=== PATIENT | female | born 1940 | race Caucasian/White ===

== ENCOUNTER → 2017-11-28 | Outpatient (CLI) | payer MEDICARE ==
[~2017-11-28] MED LIST: PRED1TAB PO; ZOLP5TAB2 PO
== END | disposition home or self-care (01) ==
LOC: RAH 09:14
PROVIDERS: ATTEND Nurse Practitioner Adult Health
DX: M79.89 Other specified soft tissue disorders (principal)
CPT/HCPCS: 93971

== ENCOUNTER → 2018-04-09 | Outpatient (CLI) | payer MEDICARE | END | disposition home or self-care (01) | LOC: RAH 10:34 | PROVIDERS: ATTEND Nurse Practitioner Adult Health | DX: Z12.31 Encounter for screening mammogram for malignant neoplasm of breast (principal) | CPT/HCPCS: 77067 ==

== ENCOUNTER 2018-12-11 21:31 | Observation (INO) | payer MEDICARE ==
[2018-12-11 22:15] LABS: EOSINOPHILS % (AUTO) 2.5 % (0.0-8.0); HEMATOCRIT 39.5 % (36-48); MEAN CORPUSCULAR HEMOGLOBIN 29.4 pg (27.0-33.0); MEAN CORPUSCULAR HGB CONC 34.3 g/dL (32.0-36.0); MEAN CORPUSCULAR VOLUME 85.8 fL (79-99); MONOCYTES % (AUTO) 9.1 % (3.0-13.0); NEUTROPHILS % (AUTO) 54.4 % (40.0-77.0); PLATELET COUNT (AUTO) 179 K/uL (130-400); RED CELL DISTRIBUTION WIDTH 13.3 % (11.0-15.5); WHITE BLOOD COUNT (AUTO) 7.4 K/uL (4.8-10.8)
[2018-12-11 22:27] LABS: INR 1.27 (0.85-1.15); PARTIAL THROMBOPLASTIN TIME 34.1 SEC (26.3-35.5); PROTHROMBIN TIME 13.2 SEC (9.6-11.6)
[2018-12-11 22:28] LABS: CREATININE 0.8 mg/dL (0.5-1.5); POTASSIUM 4.1 mmol/L (3.5-5.1)
[2018-12-11 22:33] LABS: ALBUMIN 3.4 g/dL (3.5-5.0); BILIRUBIN,TOTAL 0.2 mg/dL (0.2-1.0); TOTAL PROTEIN, SERUM 7.4 g/dL (6.0-8.3)
[2018-12-12] MEDS ORDERED: LACTULOSE 20 GM/30 ML UDCUP PO PRN (01:00)
[2018-12-12] MEDS ORDERED: ACETAMINOPHEN 325 MG TAB PO PRN ×2 (01:00)
[2018-12-12] MEDS ORDERED: MORPHINE SULFATE 2 MG/ML 1ML SYG IV PRN (01:00)
[2018-12-12] MEDS ORDERED: ONDANSETRON HCL 4 MG/2 ML VIAL IV PRN (01:00)
[2018-12-12 03:43] VITALS: BP 151/98
--- NOTE | 2018-12-12 04:30 | NUR ---
PT HAD A BM BRIGHT RED BLOOD NOTICED MINIMAL AMOUNT , BUT NOTORIOUS PT DENIES SOB OR CHEST PAIN
[2018-12-12 06:07] LABS: HEMATOCRIT 38.4 % (36-48)
[2018-12-12 08:20] VITALS: BP 128/66
[2018-12-12] MEDS: FAMOTIDINE/PF 20 MG/2 ML VIAL IV SCH ×2 (10:14→21:59)
[2018-12-12] MEDS: SODIUM CHLORIDE 0.9% 1000ML 1,000 ML IV SCH ×2 (10:15→10:52)
[2018-12-12 10:32] LABS: HEMATOCRIT 39.9 % (36-48)
--- NOTE | 2018-12-12 10:33 | NUR ---
DR. FOX PAGESanjana:STATES SHES NOT ONCALL DR. CHATO SAWYER
[2018-12-12 11:59] VITALS: BP 132/79
--- NOTE | 2018-12-12 12:05 | NUR ---
PT STATES BLEEDING IS LESS NOTICED IN STOOLS.
--- NOTE | 2018-12-12 15:54 | NUR ---
DR. REIS'S OFFICE KRISTINE RETURNED CALL STATES NO NEED FOR SCOPE AT THIS TIME, OTHER ORDERS ENTERED.
[2018-12-12 16:03] VITALS: BP 145/75
[2018-12-12 16:09] LABS: HEMATOCRIT 39.4 % (36-48)
--- NOTE | 2018-12-12 18:24 | NUR ---
cm note met with patient and states resides [facility] with spouse, is a [place], independent with adls and does use walker for long distances only. dcplan is back to home. pt drives. dc plan is back to home with spouse, no dc needs. Addendum: 12/12/18 at 1826 by JHON MARTINES CM Amended: Links added.
[2018-12-12 19:00] VITALS: BP 133/67
[2018-12-12] MEDS ORDERED: HYDROCORTISONE 25 MG SUPPOSITORY PR SCH (21:00)
[2018-12-12] MEDS: PSYLLIUM SEED 1 EACH PACKET PO SCH (22:00)
[2018-12-12 23:00] VITALS: BP 121/65
[2018-12-13 03:00] VITALS: BP 125/73
[2018-12-13 05:31] LABS: BASOPHILS % (AUTO) 0.9 % (0.0-5.0); EOSINOPHILS % (AUTO) 3.2 % (0.0-8.0); HEMATOCRIT 37.7 % (36-48); LYMPHOCYTES % (AUTO) 32.5 % (21.0-51.0); MEAN CORPUSCULAR HEMOGLOBIN 28.7 pg (27.0-33.0); MEAN CORPUSCULAR HGB CONC 33.7 g/dL (32.0-36.0); MEAN CORPUSCULAR VOLUME 85.2 fL (79-99); MONOCYTES % (AUTO) 9.3 % (3.0-13.0); NEUTROPHILS % (AUTO) 54.1 % (40.0-77.0); PLATELET COUNT (AUTO) 177 K/uL (130-400); RED BLOOD CELL COUNT(AUTO) 4.42 MIL/uL (4.00-5.50); RED CELL DISTRIBUTION WIDTH 13.2 % (11.0-15.5); WHITE BLOOD COUNT (AUTO) 5.5 K/uL (4.8-10.8)
[2018-12-13 05:41] LABS: CREATININE 0.7 mg/dL (0.5-1.5); POTASSIUM 3.8 mmol/L (3.5-5.1)
[2018-12-13 08:00] VITALS: BP 131/61
[2018-12-13] MEDS ORDERED: RIVAROXABAN 20 MG TABLET ONE (09:42)
[2018-12-13] MEDS: PSYLLIUM SEED 1 EACH PACKET PO SCH (09:49)
[2018-12-13] MEDS: FAMOTIDINE/PF 20 MG/2 ML VIAL IV SCH (09:49)
[2018-12-13 11:22] VITALS: BP 118/70
[2018-12-13] MEDS ORDERED: Psyllium Seed PO (11:42)
[2018-12-13] MEDS ORDERED: HYDR25SU11 PR (11:42)
--- NOTE | 2018-12-13 12:55 | NUR ---
PER DR. REIS RESUMSamira XARELTO TODAY. WAS CONTINUED AND NO BLEEDING WAS NOTED.
--- NOTE | 2018-12-13 12:55 | NUR ---
PT D/C HOME USING TEACH BACK TECHNIQUE RE; HOME MEDS, S/S TO WATCH FOR AND WHEN TO CALL MD OR 911. PLEASE FOLLOW UP WITH DR Jorge SALAZAR [phone] IN 1-2 [address] UP WITH DR Tyler REIS [phone] IN 1-WKS. PLEASE CALL OFFICE TO MAKE APPT AFTER DISCHARGED FROM HOSPITAL CALL 911 IF SHORTNESS OF BREATH OR CHEST PAIN OCCURS AND DOES NOT RESOLVE WITH REST. CALL YOUR GASTROINTESTINAL DOCTOR IF YOU NOTICE BLOOD IN YOUR STOOLS. Discharge home, Activity as tolerated, Follow-up with PRIMARY DOCTOR in 3 days,Referring MD: Mónica Pérez, Follow-up with GASTROINTESTINAL in 1-2 weeks/as indicated, Continue home medications, Continue medications as prescribed by GASTROINTESTINAL, Anusol rectal suppositories hs, stool softener daily, FOLLOW UP WITH HYDRO ELECTRIC STATION OPERATOR IN 1 WEEK TO FOLLOW UP WITH PULMONARY EMBOLISM AND RIGHT LOWER EXTREMITY EMBOLISM. IV D/C INTACT, NO BLEEDING, PT DENIES BM WITH BLOOD. AAOX3, NO DISTRESS, DENIES ANY QUESTIONS.
[2018-12-14] MEDS ORDERED: RIVAROXABAN 20 MG TABLET PO SCH (09:00)
== END 2018-12-13 13:15 | disposition home or self-care (01) ==
LOC: EDH 21:31 → EDHIP 12-12 00:52 → 3DH 12-12 03:08
PROVIDERS: ADMIT Hospitalist; ATTEND Hospitalist
DX: K92.1 Melena (principal); K57.90 Diverticulosis of intestine, part unspecified, without perforation or abscess without bleeding; E78.5 Hyperlipidemia, unspecified; Z86.711 Personal history of pulmonary embolism; Z86.718 Personal history of other venous thrombosis and embolism; Z86.73 Personal history of transient ischemic attack (TIA), and cerebral infarction without residual deficits; Z90.710 Acquired absence of both cervix and uterus; Z79.01 Long term (current) use of anticoagulants; Z79.899 Other long term (current) drug therapy
CPT/HCPCS: 36415 ×3; 74176; 80048; 80053; 82270; 85014 ×3; 85018 ×3; 85025 ×2; 85610; 85730; 86850; 86900; 86901; 96374; 96376 ×2; 99284; G0378 ×36; J3490 ×3

== ENCOUNTER → 2020-05-19 | Outpatient (CLI) | payer MEDICARE ==
[~2020-05-19] MED LIST changes: +HYDR25SU11 PR; -PRED1TAB PO; +Psyllium Seed PO; -ZOLP5TAB2 PO
== END | disposition home or self-care (01) ==
LOC: RAH 08:15
PROVIDERS: ATTEND Nurse Practitioner Adult Health
DX: Z12.31 Encounter for screening mammogram for malignant neoplasm of breast (principal)
CPT/HCPCS: 77067

== ENCOUNTER → 2020-05-20 | Outpatient (CLI) | payer MEDICARE | END | disposition home or self-care (01) | LOC: CANPRECLI → RAH 09:25 | PROVIDERS: ATTEND Internal Medicine Gastroenterology | DX: R13.12 Dysphagia, oropharyngeal phase (principal); R63.3 Feeding difficulties; R05 Cough | CPT/HCPCS: 71046 ==

== ENCOUNTER → 2023-02-13 | Outpatient (CLI) | payer MEDICARE | END | disposition home or self-care (01) | LOC: RAH 09:56 | PROVIDERS: ATTEND Nurse Practitioner Adult Health | DX: M47.815 Spondylosis without myelopathy or radiculopathy, thoracolumbar region (principal); R05.9 Cough, unspecified; I70.0 Atherosclerosis of aorta | CPT/HCPCS: 71046 ==

== ENCOUNTER → 2023-12-11 | Outpatient (CLI) | payer MEDICARE ==
[~2023-12-11] MED LIST changes: +GADOTERATE MEGLUMINE 10 MMOL/20 ML VIAL IV ONE
== END | disposition home or self-care (01) ==
LOC: RAH 14:36
PROVIDERS: ATTEND Nurse Practitioner Adult Health
DX: R27.0 Ataxia, unspecified (principal)
CPT/HCPCS: 70553; A9575

== ENCOUNTER 2024-03-29 09:48 | Emergency (ER) | payer MEDICARE ==
[~2024-03-29] VITALS: Ht 157.5 cm; Wt 70.3 kg
[~2024-03-29 09:48] MED LIST changes: -GADOTERATE MEGLUMINE 10 MMOL/20 ML VIAL IV ONE
--- NOTE | 2024-03-29 10:00 | NUR ---
C COLLAR PLACED IN ER TRAUMA [id number]
--- NOTE | 2024-03-29 10:42 | NUR ---
ASSUMED CARE AT THIS TIME. PT MOVED TO ER 9
--- NOTE | 2024-03-29 11:16 | HMCIMG ---
CT CERVICAL SPINE W/O CONTRAST HISTORY: Fall neck pain TECHNIQUE: CT CERVICAL SPINE W/O CONTRAST. Sagittal and coronal images were produced. CT was performed with one or more of the following dose reduction techniques: Automated exposure control, adjustment of the mA and/or kV according to the patient's size, or use of the iterative reconstruction technique. FINDINGS: Evaluation of the cord and discs is limited with CT. No evidence of acute displaced fracture or dislocation. The lateral masses of C1 align with C2. No prevertebral soft tissue swelling. There is diffuse osteopenia degraded evaluation of the study. Multilevel degenerative changes are noted Soft tissues of the neck are grossly within normal limits. This study cannot exclude ligamentous injury. IMPRESSION: No evidence of displaced cervical spine fracture or dislocation. Correlate clinically. There is diffuse osteopenia degraded evaluation of the study. Multilevel degenerative changes are noted
--- NOTE | 2024-03-29 11:17 | HMCIMG ---
CT MAXILLOFACIAL W/O CONTRAST HISTORY: Fall neck pain TECHNIQUE: Noncontrast CT maxillofacial was performed. Sagittal and coronal reformats were performed. CT was performed with one or more of the following dose reduction techniques: Automated exposure control, adjustment of the mA and/or kV according to the patient's size, or use of the iterative reconstruction technique. FINDINGS: Mild facial soft tissue swelling. Displaced bilateral nasal bone fracture seen. Visualized paranasal sinuses are normally aerated. Modified there are cells are clear. Study is not adequate to evaluate brain parenchyma/dura. IMPRESSION: Mild facial soft tissue swelling. Displaced bilateral nasal bone fracture seen.
--- NOTE | 2024-03-29 11:18 | HMCIMG ---
CT HEAD/BRAIN W/O CONTRAST INDICATION: Fall neck pain TECHNIQUE: CT HEAD/BRAIN W/O CONTRAST. CT was performed with one or more of the following dose reduction techniques: Automated exposure control, adjustment of the mA and/or kV according to the patient's size, or use of the iterative reconstruction technique. Comparison: 12/01/2023 FINDINGS: Cerebral atrophy seen. Nonspecific periventricular and subcortical white matters changes are noted likely representing small vessel ischemic changes. No midline shift or herniation. No extra axial collection. No acute intracranial bleed. The visualized paranasal sinuses and mastoid air cells are normally aerated. IMPRESSION: Diffuse atrophy. No acute intracranial bleed is seen. Nonspecific white matter changes
--- NOTE | 2024-03-29 11:33 | NUR ---
C COLLAR REMOVED PER ORDER
[2024-03-29 13:00] VITALS: BP 171/69; PULSE 74; RESP 18; TEMP 97.8; O2SAT 98
--- NOTE | 2024-03-29 13:25 | ERN ---
General Chief Complaint: Mechanical Fall Stated Complaint: FALL Time Seen by MD: 09:56 History of Present Illness Initial Comments 3-year-old female came in for fall after she tripped at home. As per patient she landed on her face had some bleeding from the nose along with small forehead laceration. Patient denies loss of consciousness. Patient states that she was has a headache. Patient denies trauma to upper and lower extremities. Patient otherwise has no concerns. Allergies: Coded Allergies: No Known Drug Allergies (Verified Allergy, Unknown, 12/14/13) Home Meds Active Scripts Hydrocortisone Acetate (Anucort-Hc) 25 Mg Supp.rect, 1 SUPP NV HS for 10 Days, EA Prov:AMANDA CAREY REFRIGERATING MACHINE OPERATOR 12/13/18 [Psyllium Seed] 1 TBS/PACKET PACKET No Conflict Check, 2 TBS PO TID, #10 0 Refills Prov:AMANDA CAREY REFRIGERATING MACHINE OPERATOR 12/13/18 Past Medical History Past Medical History: No Pertinent History Past Surgical History: None ROS Dictation CONSTITUTIONAL: Negative except for HPI HEAD/FACE: Negative except for HPI EENT: Negative except for HPI RESPIRATORY: Negative except for HPI GASTROINTESTINAL/ABDOMINAL: Negative except for HPI GENITOURINARY: Negative except for HPI MUSCULOSKELETAL: Negative except for HPI INTEGUMENTARY: Negative except for HPI NEUROLOGICAL/PSYCH: Negative except for HPI HEMATOLOGIC/LYMPHATIC: Negative except for HPI All Systems Negative, Except as noted above. 13 point review of systems assessed and all negative except for above. Physical Exam Physical Exam Dictation Vital Signs reviewed General Appearance: Alert, oriented x 3, no acute distress, well developed, nourished. Head and Face: non-traumatic. Eyes: PERRL, pink conjunctivas, eyelid no trauma, anterior chamber with arcus senilis. Ears: Pinnas intact and no signs of trauma or erythema ear canals clear and no discharge TM no erythema Nose: No discharge, no bleeding. Oropharynx: Mouth normal, tongue pink, pharynx clear,no erythema, tonsils no exudates, no abscesses noted, mucous membrane moist Neck: Supple, non-tender, no thyromegaly, no masses, no JVD, no bruits Breast:Deferred Chest:No tenderness, no crepitus, no paradoxical movement, no retractions Lungs:Clear, well-ventilated, symmetric, no rales, no wheezing, no rhonchi, no stridor, good breath sounds bilaterally Heart: Regular rate, regular rhythm, no murmur, no gallops Vascular: no peripheral edema, Abdomen: Soft, positive bowel sounds, nondistended, no guarding, nontender, no rebound, no masses no hepatomegaly, no splenomegaly, no Malave's sign, no hernias. Rectal: Deferred Genital: Deferred Neurological: Normal speech, motor function intact, sensory function intact Musculoskeletal: Neck nontender, full range of motion, back nontender, full range of motion, Extremities: nontender, full range of motion Skin: Color pink, dry, no turgor, no rash, no lacerations, no abrasions, no contusions. Lymphatic: Deferred MDM MDM: Differential diagnosis: There are no social concerns with this patient. Prescription drug management Prescriptions will include: Medical management and examination interpretation discussions were had by me with other qualified healthcare professionals as indicated for the patient's care. ED Course Orders Procedure Category Date Status Time Ct Cervical Spine W/O CT 03/29/24 Resulted Contrast 09:59 Ct Head/Brain W/O CT 03/29/24 Resulted Contrast 09:59 Ct Maxillofacial W/O CT 03/29/24 Resulted Contrast 09:59 Hip Bilat 2vw RAD 03/29/24 Taken 09:59 Remove Pt Off CPOE 03/29/24 Transmitted C-Collar. (Er) 11:32 Vital Signs Date Time Temp Pulse Resp B/P (MAP) Pulse Ox O2 Delivery O2 Flow Rate FiO2 03/29/24 12:00 97.9 70 16 160/54 97 Room Air* 0 21 03/29/24 11:00 97.9 72 20 170/69 98 Room Air* 0 21 03/29/24 10:00 97.9 78 20 176/71 98 Room Air* 0 21 03/29/24 09:50 99.0 83 16 174/72 96 Room Air DX & DISP Disposition: Discharge Departure Impression: Primary Impression: Fall Condition: Stable Referrals: DIANA ELIZONDO NP (PCP) ESTELLE ARIAS MD Mar 29, 2024 13:25
--- NOTE | 2024-03-30 08:35 | HMCIMG ---
HIP BILAT 2VW REASON: Injury COMPARISON: None TECHNIQUE: AP and frog-leg lateral views are obtained of the hips and pelvis, 2 views. FINDINGS: Bones of the pelvis appear intact. There are no fractures. Hip joint spaces are preserved. Proximal femurs appear unremarkable as well. Surrounding soft tissues appear normal. There are some degenerative changes lower lumbar spine. IMPRESSION: 1. Moderate degenerative changes lower lumbar spine. 2. Otherwise normal views of the pelvis and both hips.
== END 2024-03-29 13:41 | disposition home or self-care (01) ==
LOC: EDH 09:48
DX: S01.81XA Laceration without foreign body of other part of head, initial encounter (principal); W01.0XXA Fall on same level from slipping, tripping and stumbling without subsequent striking against object, initial encounter; Y93.89 Activity, other specified; Y92.89 Other specified places as the place of occurrence of the external cause; Y99.8 Other external cause status
CPT/HCPCS: 70450; 70486; 72125; 73521; 99285

== ENCOUNTER → 2024-12-30 | Outpatient (CLI) | payer MEDICARE ==
--- NOTE | 2024-12-30 21:50 | HMCIMG ---
STUDY: VENOUS DOPPLER ULTRASOUND OF THE LOWER EXTREMITY, UNILATERAL CLINICAL INFORMATION: History of venous thrombosis and embolism. TECHNIQUE: Grayscale, color Doppler, and spectral Doppler ultrasound of the unilateral lower extremity venous system was performed, including compression maneuvers where feasible. COMPARISON: None provided. FINDINGS: Deep venous system: The examined deep veins demonstrate normal compressibility with normal color Doppler flow and appropriate spectral Doppler waveforms. No intraluminal echogenic thrombus or filling defect is identified to suggest deep venous thrombosis. Popliteal region: A fluid-filled structure in the popliteal fossa measuring approximately 4.6 x 2.1 x 3.1 cm is compatible with a Mathis???s cyst. Anterior knee: In the region of interest at the anterior knee, a fluid collection in the suprapatellar region measures approximately 3.8 x 1.0 x 3.4 cm, likely representing suprapatellar bursitis. IMPRESSION: * No sonographic evidence of deep venous thrombosis in the examined lower extremity. 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 * Suprapatellar fluid collection measuring approximately 3.8 x 1.0 x 3.4 cm, compatible with suprapatellar bursitis. /[place]
== END | disposition home or self-care (01) ==
LOC: RAH 10:29
PROVIDERS: ATTEND Nurse Practitioner Adult Health
DX: M71.21 Synovial cyst of popliteal space [Baker], right knee (principal); R60.9 Edema, unspecified; Z86.718 Personal history of other venous thrombosis and embolism
CPT/HCPCS: 93971

== ENCOUNTER → 2025-01-05 | Outpatient (CLI) | payer MEDICARE | END | disposition home or self-care (01) | LOC: RAH 15:25 | PROVIDERS: ATTEND Nurse Practitioner Adult Health | DX: Z12.31 Encounter for screening mammogram for malignant neoplasm of breast (principal) | CPT/HCPCS: 77067 ==

== ENCOUNTER 2025-01-27 11:48 | Emergency (ER) | payer MEDICARE ==
[~2025-01-27] VITALS: Ht 157.5 cm; Wt 69.4 kg
[2025-01-27 11:49] VITALS: BP 150/82; PULSE 71; RESP 16; TEMP 98
--- NOTE | 2025-01-27 12:00 | NUR ---
PT TO CAT SCAN, AWAKE, ALERT, C/O HEADACHE AND RT SHOULDER PAIN
--- NOTE | 2025-01-27 12:14 | ERN ---
ED Note History of Present Illness Stated Complaint: FALL Chief Complaint: Mechanical Fall Time Seen by MD: 11:55 Dictation: Patient is a 84-year-old female with a past medical history of hypertension, PE 10 years ago on Xarelto 10 mg daily who was brought to emergency department [place] Patient stated that she believes she trip and fall flat on her face. She is complaining of headache, right shoulder pain, right knee pain. She denied loss of consciousness. No chest pain prior during or after the event. Allergies: Coded Allergies: No Known Drug Allergies (Verified Allergy, Unknown, 12/14/13) Home Meds Active Scripts Ibuprofen (Ibuprofen) 200 Mg Capsule, 2 CAP PO Q8H PRN for PAIN for 5 Days, #30 CAP 0 Refills Prov:MONICA PAN MD 01/27/25 Acetaminophen (Tylenol) 500 Mg Tab, 1 TAB PO Q6HPRN PRN for pain or fever for 15 Days, #30 TAB 0 Refills Prov:MONICA PAN MD 01/27/25 Hydrocortisone Acetate (Anucort-Hc) 25 Mg Supp.rect, 1 SUPP GA HS for 10 Days, EA Prov:AMANDA CAREY NP 12/13/18 [Psyllium Seed] 1 TBS/PACKET PACKET No Conflict Check, 2 TBS PO TID, #10 0 Refills Prov:AMANDA CAREY NP 12/13/18 Past Medical History Past Medical History: No Pertinent History Surgical History: None Review of System Dictation NEGATIVE EXCEPT PER HPI Constitutional: Negative for fever,chills, and weight loss Eyes: Negative for injury, pain,redness, and discharge ENT: Negative for injury,pain or swelling Cardiovascular: denies chest pain, palpitations, and edema Respiratory: Negative for shortness of breath, cough, and wheezing, Abdomen/GI: Negative for abdominal pain, nausea, vomiting, diarrhea, and constipation Back: Negative for injury and pain : Negative for injury, bleeding and discharge MS/Extremity: Right shoulder pain, right knee pain Skin: Negative for rash, and discoloration Neuro: Negative for headache, weakness, numbness, tingling, and seizure Psych: Negative for suicide ideation, homicidal ideation, and hallucinations Initial Vital Sign VS Vital Signs Date Time Temp Pulse Resp B/P (MAP) Pulse Ox O2 Delivery O2 Flow Rate FiO2 01/27/25 11:49 98.1 71 16 150/82 98 Room Air Physical Exam Dictation General: awake, alert, NAD Head/Face: Normocephalic, atraumatic Eyes: PERRL, EOMI, vision at baseline ENT: oral cavity clear, TMs clear, no signs of infection Neck: Trachea midline, supple, no nuchal rigidity Cardiovascular: RRR, normal S1/S2, No MRGs, no JVD Respiratory: CTAB, no respiratory distress, No rales or wheezes Abdomen: Soft , no tender Skin: Warm, dry, normal turgor, no rash MS/Extremity: Pulses equal, no cyanosis, neurovascular intact, FROM Neuro: COAx4, GCS 15, strength 5/5, CN 2-12 intact, normal cerebellar exam, normal gait, Psych: Normal behavior, mood, and affect normal Results (Laboratory/Radiology) Laboratory/Radiology Laboratory Tests Test 01/27/25 12:49 White Blood Count 6.9 K/uL (4.8-10.8) Red Blood Count 4.44 MIL/uL (4.00-5.50) Hemoglobin 12.8 g/dL (12.0-16.0) Hematocrit 39.4 % (36-48) Mean Corpuscular Volume 88.7 fL (79-99) Mean Corpuscular Hemoglobin 28.8 pg (27.0-33.0) Mean Corpuscular Hemoglobin Concent 32.5 g/dL (32.0-36.0) Red Cell Distribution Width 13.5 % (11.0-15.5) Platelet Count 187 K/uL (130-400) Mean Platelet Volume 10.1 fL (7.5-10.5) Nucleated Red Blood Cells 0.0 % (0.0-0.19) Sodium Level 140 mmol/L (136-145) Potassium Level 4.1 mmol/L (3.5-5.1) Chloride Level 105 mmol/L (101-111) Carbon Dioxide Level 31 mmol/L (21-32) Blood Urea Nitrogen 14 mg/dL (7-18) Creatinine 0.8 mg/dL (0.5-1.0) Glomerular Filtration Rate Calc 72 mL/min (>90) Random Glucose 98 mg/dL (70-105) Total Calcium 8.8 mg/dL (8.5-10.1) Troponin I High Sensitivity 26 ng/L (4-50) EKG Comment: Sinus rhythm, heart rate 65, GA 178, QT 423 ED Course ED Course Orders Procedure Category Date Status Time Ct Head/Brain W/O CT 01/27/25 Resulted Contrast 11:56 Ct Cervical Spine W/O CT 01/27/25 Resulted Contrast 11:56 Shoulder Comp 2+Vws Rt RAD 01/27/25 Resulted 12:02 Hip Bilat 2vw RAD 01/27/25 Resulted 12:02 Knee 3vws Rt RAD 01/27/25 Resulted 12:02 12 Lead Ekg Tracing- EKG 01/27/25 Resulted Technical 12:02 Troponin I High LAB 01/27/25 Complete Sensitivity 12:02 Cbc Without LAB 01/27/25 Complete Differential 12:02 Basic Metabolic Panel LAB 01/27/25 Complete 12:02 Urinalysis Profile LAB 01/27/25 Uncollected 12:02 Humerus 2+Vws Rt RAD 01/27/25 Resulted 12:14 Acetaminophen 500mg PHA 01/27/25 Complete Tab (Tylenol 500mg T 13:30 Tramadol Hcl (Ultram) PHA 01/27/25 Complete 13:30 Dermabond (Dermabond) PHA 01/27/25 Complete 16:00 Dermabond (Dermabond) PHA 01/27/25 Complete 15:43 Current Medications Medications (Trade) Dose Ordered Sig/Prieto Route PRN Reason Start Time Stop Time Status Last Admin Dose Admin Acetaminophen (TYLenol 500MG TAB) 500 mg ONCE ONCE PO 01/27/25 13:30 01/27/25 13:32 DC 01/27/25 14:35 Octyl Cyanoacrylate (Dermabond) 1 each ONCE ONCE TP 01/27/25 16:00 01/27/25 16:01 DC 01/27/25 15:51 Octyl Cyanoacrylate (Dermabond) 1 each STK-MED ONCE TP 01/27/25 15:43 01/27/25 15:43 DC Tramadol HCl (UltRAM) 50 mg ONCE ONCE PO 01/27/25 13:30 01/27/25 13:32 DC 01/27/25 14:36 Vital Signs Date Time Temp Pulse Resp B/P (MAP) Pulse Ox O2 Delivery O2 Flow Rate FiO2 01/27/25 11:49 98.1 71 16 150/82 98 Room Air Medical Decision Making MDM 84-year-old female who sustained a mechanical fall, on Xarelto 10 mg daily. Patient hit her face, complaining of right shoulder pain and knee pain in the right side. Head trauma Right shoulder pain Knee pain Ordered CT images of head neck, X-ray of extremities and pelvis Ordered laboratory workup as well troponin, EKG. Images was within normal limits no acute fractures or dislocation. EXAM: CT Head Without IV contrast. CLINICAL HISTORY: Trauma to head, fall on anticoagulation TECHNIQUE: Axial computed tomography images of the head/brain without intravenous contrast. COMPARISON: None provided. FINDINGS: BRAIN: No evidence of acute hemorrhage. No mass lesion. No CT evidence for acute territorial infarct. No midline shift or extra-axial collections. Diffuse cerebral atrophy. VENTRICLES: No hydrocephalus. ORBITS: The orbits are unremarkable. SINUSES AND MASTOIDS: The paranasal sinuses and mastoid air cells are clear. BONES: No fracture. SOFT TISSUES: Unremarkable. IMPRESSION: 1. No acute intracranial findings. STUDY CR right knee, 3 views. HISTORY Fall. TECHNIQUE Frontal, lateral, and sunrise views of the right knee. COMPARISON None. FINDINGS Bones No acute fracture or aggressive osseous lesion is identified. There are marginal osteophytes along the femoral and tibial condyles and patella. Joints There is osteoarthritis with asymmetric narrowing of the tibiofemoral and patellofemoral joint spaces, predominantly involving the lateral tibiofemoral compartment, with associated periarticular osteophytosis. No sizable joint effusion is appreciated. Soft tissues The soft tissues are unremarkable. No soft tissue calcification or radiopaque foreign body is seen. IMPRESSION * Osteoarthritis of the right knee with asymmetric joint space narrowing, most pronounced in the lateral tibiofemoral compartment, and associated periarticular osteophytosis. * No acute fracture identified. Pain medication for admission to the patient Tylenol and tramadol. DX & DISP Disposition: Discharge Departure Impression: Primary Impression: Fall Additional Impressions: Laceration of face, Knee pain, Knee pain, right Condition: Stable Scripts Ibuprofen (Ibuprofen) 200 Mg Capsule 2 CAP PO Q8H PRN for PAIN for 5 Days, #30 CAP 0 Refills Prov: MONICA PAN MD 01/27/25 Acetaminophen (Tylenol) 500 Mg Tab 1 TAB PO Q6HPRN PRN for pain or fever for 15 Days, #30 TAB 0 Refills Prov: MONICA PAN MD 01/27/25 Referrals: DIANA ELIZONDO NP (PCP) MONICA PAN MD Jan 27, 2025 12:14
--- NOTE | 2025-01-27 12:48 | EKG ---
[facility] Test Date: 2025-01-27 Test Time: 12:34:01 Pat Name: SOBEIDA BARRIENTOS Department: ED Room: Gender: F [employer] Router: [id number] : 1940 Requested By: MONICA VIVAS Order Number: [id number] Reading MD: Chivo Wyatt Measurements Intervals [place] Rate: 65 P: 57 [place]: 178 QRS: -12 QRSD: 85 T: 43 QT: 423 QTc: 441 Interpretive Statements Sinus rhythm Probable left atrial enlargement Low voltage, precordial leads No previous ECG available for comparison Electronically Signed On 01-28-2025 08:45:47 NOVELT[employer] SALES REPRESENTATIVE by Chivo Wyatt Please click the below link to view image of tracing.
--- NOTE | 2025-01-27 12:54 | HMCIMG ---
EXAM: CT Head Without IV contrast. CLINICAL HISTORY: Trauma to head, fall on anticoagulation TECHNIQUE: Axial computed tomography images of the head/brain without intravenous contrast. COMPARISON: None provided. FINDINGS: BRAIN: No evidence of acute hemorrhage. No mass lesion. No CT evidence for acute territorial infarct. No midline shift or extra-axial collections. Diffuse cerebral atrophy. VENTRICLES: No hydrocephalus. ORBITS: The orbits are unremarkable. SINUSES AND MASTOIDS: The paranasal sinuses and mastoid air cells are clear. BONES: No fracture. SOFT TISSUES: Unremarkable. IMPRESSION: 1. No acute intracranial findings. /[place]
[2025-01-27 13:08] LABS: NUCLEATED RED BLOOD CELLS 0.0 % (0.0-0.19); PLATELET COUNT (AUTO) 187.0 K/uL (130-400); RED BLOOD CELL COUNT(AUTO) 4.44 MIL/uL (4.00-5.50); RED CELL DISTRIBUTION WIDTH 13.5 % (11.0-15.5); WHITE BLOOD COUNT (AUTO) 6.9 K/uL (4.8-10.8)
[2025-01-27 13:16] LABS: CREATININE 0.8 mg/dL (0.5-1.0); GLOMERULAR FILTR. RATE CALC 72.0 mL/min (>90); GLUCOSE,RANDOM 98.0 mg/dL (70-105); SODIUM SERUM 140.0 mmol/L (136-145); UREA NITROGEN, BLOOD 14.0 mg/dL (7-18)
--- NOTE | 2025-01-27 13:26 | HMCIMG ---
STUDY CR right knee, 3 views. HISTORY Fall. TECHNIQUE Frontal, lateral, and sunrise views of the right knee. COMPARISON None. FINDINGS Bones No acute fracture or aggressive osseous lesion is identified. There are marginal osteophytes along the femoral and tibial condyles and patella. Joints There is osteoarthritis with asymmetric narrowing of the tibiofemoral and patellofemoral joint spaces, predominantly involving the lateral tibiofemoral compartment, with associated periarticular osteophytosis. No sizable joint effusion is appreciated. Soft tissues The soft tissues are unremarkable. No soft tissue calcification or radiopaque foreign body is seen. IMPRESSION * Osteoarthritis of the right knee with asymmetric joint space narrowing, most pronounced in the lateral tibiofemoral compartment, and associated periarticular osteophytosis. * No acute fracture identified. /[place]
--- NOTE | 2025-01-27 13:27 | HMCIMG ---
EXAM: CT Cervical Spine Without IV Contrast. CLINICAL HISTORY: Injury, fall. TECHNIQUE: Axial computed tomography images of the cervical spine without intravenous contrast. Sagittal and coronal reformatted images were generated. COMPARISON: None provided. FINDINGS: ALIGNMENT: Cervical spine curvature straightened. DEGENERATIVE CHANGES: Degenerative changes in the form of multilevel marginal osteophytes, endplate irregularities, partially reduced intervertebral disc spaces, facet joint and uncovertebral joint hypertrophy. Multilevel facet joint ankylosis present. Posterior disc osteophyte complex at the C5-C6 level causing ventral thecal sac indentation and mild narrowing of the bilateral neural foramina. SOFT TISSUES: The prevertebral soft tissues are within normal limits. BONES: No acute fracture or aggressive appearing osseous lesion. IMPRESSION: No acute cervical spine fracture. Multilevel degenerative cervical spondylosis with facet joint ankylosis and posterior disc osteophyte complex at C5-C6 causing mild bilateral neural foraminal narrowing. /[place]
--- NOTE | 2025-01-27 13:29 | HMCIMG ---
STUDY CR bilateral hips, 5 views. HISTORY Fall. TECHNIQUE Frontal and lateral views of both hips with pelvis. COMPARISON None. FINDINGS Bones No acute fracture or aggressive appearing osseous lesion is identified. Bony alignment is maintained. Joints There is bilateral mild to moderate hip osteoarthritis with joint space narrowing, marginal osteophyte formation, and subchondral sclerosis, slightly more pronounced on the right. No hip dislocation is seen. Soft tissues The soft tissues are unremarkable. No radiopaque foreign body or soft tissue calcification is identified. IMPRESSION * Bilateral mild to moderate hip osteoarthritis, slightly more pronounced on the right. * No acute fracture or dislocation. /[place]
--- NOTE | 2025-01-27 13:29 | HMCIMG ---
STUDY CR right humerus, 2 views. HISTORY Fall. TECHNIQUE Frontal and lateral views of the right humerus. COMPARISON None. FINDINGS Bones No acute fracture or aggressive appearing osseous lesion is identified. Humeral shaft alignment is maintained. Joints There are degenerative changes of the acromioclavicular and glenohumeral joints with joint space narrowing and marginal osteophyte formation. No dislocation is seen. Soft tissues The soft tissues are unremarkable. No radiopaque foreign body or soft tissue calcification is identified. IMPRESSION * Degenerative osteoarthritic changes of the right acromioclavicular and glenohumeral joints. * No acute fracture or dislocation. /[place]
--- NOTE | 2025-01-27 13:38 | HMCIMG ---
EXAM: CR right Shoulder, 3 View. CLINICAL HISTORY: fall COMPARISON: None provided. FINDINGS: BONES: No acute fracture or aggressive appearing osseous lesion. JOINTS: No dislocation. The joint spaces are normal. SOFT TISSUES: The soft tissues are unremarkable. IMPRESSION: No acute abnormality evident on examination of the right shoulder. No acute fracture or dislocation. /[place]
--- NOTE | 2025-01-27 15:45 | NUR ---
DERMABOND APPLIED BY , PT AKASH WELL.
[2025-01-27] MEDS: OCTYL 2-CYANOACRYLATE 1 EACH TP ONE ×2 (15:51)
[2025-01-27] MEDS ORDERED: ACET-66 PO (16:08)
[2025-01-27] MEDS ORDERED: IBUP-2482 PO (16:08)
== END 2025-01-27 16:28 | disposition home or self-care (01) ==
LOC: EDH 11:48
DX: S01.81XA Laceration without foreign body of other part of head, initial encounter (principal); M25.561 Pain in right knee; M25.511 Pain in right shoulder; I10 Essential (primary) hypertension; Z86.711 Personal history of pulmonary embolism; W18.39XA Other fall on same level, initial encounter; Y93.89 Activity, other specified; Y92.89 Other specified places as the place of occurrence of the external cause; Y99.8 Other external cause status
CPT/HCPCS: 12011; 36415; 70450; 72125; 73030; 73060; 73521; 73562; 80048; 84484; 85027; 93005; 99285